=== PATIENT | female | born 1950 | race Caucasian/White ===

== ENCOUNTER 2021-02-12 12:19 | Emergency (ER) | payer MEDICARE, OTHER ==
[~2021-02-12] VITALS: Ht 157.5 cm; Wt 87.1 kg
[2021-02-12 12:28] VITALS: BP 112/68
--- NOTE | 2021-02-12 12:28 | NUR ---
Patient to bed 7. RN evaluating the patient at bedside.
--- NOTE | 2021-02-12 12:39 | NUR ---
70 y/o F coming in from home with c/c left wrist pain s/p mechanical fall. Patient states she was gardening in her yard on Thursday, fell backwards and landed on her wrist. Patient denies LOC, head/neck/back pain. Pt describes pain 8/10, sharp/constant, radiates to fingers. She states "sometimes my fingers feel numb." Denies any loss of sensation at this time. CMS in tact. Patient states she applied hot/cold compress with no relief. States Tylenol with relief. Patient denies N/V, dizziness, headache, SOB, CP, abdominal pain, other extremity pain. Pt placed onto monitor car operator, bed locked in lowest position, side rails x 1. PMH/Meds: Denies NKA Sx: Denies
--- NOTE | 2021-02-12 12:44 | NUR ---
life science technician at bedside.
--- NOTE | 2021-02-12 13:35 | NUR ---
Patient is resting with both eyes open on cell phone. supervisor litharge remains in place. Respirations even/unlabored; equal chest rise and fall. Bed locked in lowest position, side rails x 2, call light in reach.
--- NOTE | 2021-02-12 14:15 | NUR ---
Dr. Montilla is evaluating patient at bedside.
[2021-02-12] MEDS ORDERED: IBUP-2213 PO (14:24)
--- NOTE | 2021-02-12 14:26 | NUR ---
Patient states pain 5/10. Patient placed splint back onto wrist. plumbing assembler remains in place. Respirations even/unlabored. Bed locked in lowest position, side rails x 1, call light in reach.
[2021-02-12 14:33] VITALS: BP 115/54
== END 2021-02-12 14:33 | disposition home or self-care (01) ==
LOC: MED 12:19
DX: M25.532 Pain in left wrist (principal); Z90.49 Acquired absence of other specified parts of digestive tract; Z90.710 Acquired absence of both cervix and uterus
CPT/HCPCS: 73110; 99283